=== PATIENT | female | born 1955 | race African-American/Black ===

== ENCOUNTER 2019-05-09 06:37 | Inpatient (IN) | payer BC ==
[~2019-05-09] VITALS: Ht 157.5 cm; Wt 85.0 kg
[~2019-05-09 06:37] MED LIST: LOSA-73 PO; SIMV20TA18 PO
--- NOTE | 2019-05-09 06:57 | PHYS DOC ---
Past Medical History Past Medical History: Diabetes-Type II, Heart Disease, Hypertension Alcohol Use: Rarely Drug Use: None Adult General Chief Complaint Chief Complaint: Palpitations HPI HPI Patient is a 63-year-old female who presents with report of palpitations that started this morning. She states that symptoms woke her up from sleep. Patient states that it feels like her heart is just racing. She denies any actual chest pain associated with it. She does admit to feeling very shaky all over. She does admit to some shortness of breath as well. She states the shortness breath is worsened with exertion. Patient denies any history of symptoms that are similar to this.[] Review of Systems Review of Systems Constitutional: Denies fever or chills [] Respiratory: Positive shortness of breath [] Cardiovascular: No additional information not addressed in HPI [] GI: Denies abdominal pain, nausea, vomiting or diarrhea [] Integument: Denies rash or skin lesions [] Neurologic: Denies headache, focal weakness or sensory changes [] All other systems were reviewed and found to be within normal limits, except as documented in this note. Current Medications Current Medications Current Medications Medications (Trade) Dose Ordered Sig/Surendra Start Time Stop Time Status Last Admin Dose Admin Diltiazem HCl (Cardizem Iv Push) 20 mg 1X ONCE 05/09/19 07:15 05/09/19 07:16 DC 05/09/19 06:59 20 MG Diltiazem HCl 125 mg/Dextrose 125 ml @ 5 mls/hr CONT PRN 05/09/19 07:15 05/09/19 07:21 5 MLS/HR Sodium Chloride 1,000 ml @ 125 mls/hr 1X ONCE 05/09/19 08:30 05/09/19 16:29 Allergies Allergies Allergies Coded Allergies Type Severity Reaction Last Updated Verified Sulfa (Sulfonamide Antibiotics) Allergy Intermediate Hives 12/09/14 Yes Physical Exam Physical Exam Constitutional: Well developed, well nourished, no acute distress, non-toxic appearance. [] HENT: Normocephalic, atraumatic, bilateral external ears normal, oropharynx moist, no oral exudates, nose normal. [] Eyes: PERRLA, EOMI, conjunctiva normal, no discharge. [] Neck: Normal range of motion, no tenderness, supple, no stridor. [] Cardiovascular: Tachycardic rate with irregular rhythm[] Lungs & Thorax: Bilateral breath sounds clear to auscultation [] Abdomen: Bowel sounds normal, soft, no tenderness. [] Skin: Warm, dry, no erythema, no rash. [] Extremities: No tenderness, no cyanosis, no clubbing, ROM intact, with nonpitting edema. [] Neurologic: Alert and oriented X 3, no focal deficits noted. [] Current Patient Data Vital Signs Vital Signs Date Time Temp Pulse Resp B/P (MAP) Pulse Ox O2 Delivery O2 Flow Rate FiO2 05/09/19 08:00 88 18 143/93 (110) 98 Room Air 05/09/19 06:41 98.1 98.1 Lab Values Laboratory Tests Test 05/09/19 06:45 05/09/19 07:20 White Blood Count 5.5 x10^3/uL (4.0-11.0) Red Blood Count 6.45 x10^6/uL (3.50-5.40) H Hemoglobin 15.4 g/dL (12.0-15.5) Hematocrit 47.7 % (36.0-47.0) H Mean Corpuscular Volume 74 fL (79-100) L Mean Corpuscular Hemoglobin 24 pg (25-35) L Mean Corpuscular Hemoglobin Concent 32 g/dL (31-37) Red Cell Distribution Width 14.4 % (11.5-14.5) Platelet Count 282 x10^3/uL (140-400) Neutrophils (%) (Auto) 29 % (31-73) L Lymphocytes (%) (Auto) 58 % (24-48) H Monocytes (%) (Auto) 9 % (0-9) Eosinophils (%) (Auto) 3 % (0-3) Basophils (%) (Auto) 1 % (0-3) Neutrophils # (Auto) 1.6 x10^3/uL (1.8-7.7) L Lymphocytes # (Auto) 3.2 x10^3/uL (1.0-4.8) Monocytes # (Auto) 0.5 x10^3/uL (0.0-1.1) Eosinophils # (Auto) 0.1 x10^3/uL (0.0-0.7) Basophils # (Auto) 0.1 x10^3/uL (0.0-0.2) Sodium Level 144 mmol/L (136-145) Potassium Level 4.4 mmol/L (3.5-5.1) Chloride Level 109 mmol/L (98-107) H Carbon Dioxide Level 26 mmol/L (21-32) Anion Gap 9 (6-14) Blood Urea Nitrogen 10 mg/dL (7-20) Creatinine 0.9 mg/dL (0.6-1.0) Estimated GFR (Cockcroft-Gault) 76.5 BUN/Creatinine Ratio 11 (6-20) Glucose Level 162 mg/dL (70-99) H Calcium Level 9.3 mg/dL (8.5-10.1) Magnesium Level 1.9 mg/dL (1.8-2.4) Total Bilirubin 0.3 mg/dL (0.2-1.0) Aspartate Amino Transferase (AST) 19 U/L (15-37) Alanine Aminotransferase (ALT) 15 U/L (14-59) Alkaline Phosphatase 94 U/L (46-116) Troponin I Quantitative < 0.017 ng/mL (0.000-0.055) WM-Ckn-E-Type Natriuretic Peptide 23 pg/mL (0-124) Total Protein 7.6 g/dL (6.4-8.2) Albumin 3.6 g/dL (3.4-5.0) Albumin/Globulin Ratio 0.9 (1.0-1.7) L Laboratory Tests 05/09/19 06:45 Laboratory Tests 05/09/19 07:20 EKG EKG [] Interpretation Time: EKG demonstrates atrial fibrillation with rapid ventricular response with rate of 140. Radiology/Procedures Radiology/Procedures [] Course & Med Decision Making Course & Med Decision Making Pertinent Labs and Imaging studies reviewed. (See chart for details) [] Dragon Disclaimer Dragon Disclaimer This electronic medical record was generated, in whole or in part, using a voice recognition dictation system. Departure Departure Impression: Primary Impression: Atrial fibrillation with RVR Disposition: ADMITTED INPATIENT Admitting Physician: Angi Hudson Condition: IMPROVED Referrals: ANGI HUDSON MD (PCP) HUGO HAWKINS Jr. DO May 09, 2019 06:57
[2019-05-09 06:59] LABS: BASO # 0.1 x10^3/uL (0.0-0.2); BASO % 1 % (0-3); EOS # 0.1 x10^3/uL (0.0-0.7); EOS % 3 % (0-3); HEMATOCRIT 47.7 % (36.0-47.0); HEMOGLOBIN 15.4 g/dL (12.0-15.5); LYMPH # 3.2 x10^3/uL (1.0-4.8); LYMPH % 58 % (24-48); MEAN CORPUSCULAR HEMOGLOBIN 24 pg (25-35); MEAN CORPUSCULAR HGB CONC 32 g/dL (31-37); MEAN CORPUSCULAR VOLUME 74 fL (79-100); MONO # 0.5 x10^3/uL (0.0-1.1); MONO % 9 % (0-9); NEUT # 1.6 x10^3/uL (1.8-7.7); NEUT % 29 % (31-73); PLATELET COUNT 282 x10^3/uL (140-400); RED BLOOD COUNT 6.45 x10^6/uL (3.50-5.40); RED CELL DISTRIBUTION WIDTH 14.4 % (11.5-14.5); WHITE BLOOD COUNT 5.5 x10^3/uL (4.0-11.0)
[2019-05-09] MEDS ORDERED: dilTIAZem IV PUSH 25 MG/5 ML VIAL IVP ONE (07:15)
[2019-05-09] MEDS: dilTIAZem INJ 125 MG in IV DEXTROSE 5% 100ML 100 ML IV PRN ×2 (07:21→20:46)
[2019-05-09 07:42] LABS: CALCIUM 9.3 mg/dL (8.5-10.1); CREATININE 0.9 mg/dL (0.6-1.0); GFR 76.5; POTASSIUM 4.4 mmol/L (3.5-5.1)
--- NOTE | 2019-05-09 07:47 | RAD ---
EXAM: Chest, single view. HISTORY: Palpitations. COMPARISON: None. FINDINGS: A frontal view of the chest is obtained. There is no infiltrate, pleural effusion or pneumothorax. The heart is normal in size. There is slight eventration of the right hemidiaphragm. There is a calcified granuloma within the left mid thorax. IMPRESSION: No acute pulmonary finding. Electronically signed by: Steffanie Max MD (05/09/2019 7:43 AM) [facility]
[2019-05-09 07:48] LABS: ALBUMIN 3.6 g/dL (3.4-5.0); ALBUMIN/GLOBULIN RATIO 0.9 (1.0-1.7); MAGNESIUM 1.9 mg/dL (1.8-2.4); TOTAL BILIRUBIN 0.3 mg/dL (0.2-1.0); TOTAL PROTEIN 7.6 g/dL (6.4-8.2)
[2019-05-09] MEDS ORDERED: IV NORMAL SALINE 1000ML BAG 1,000 ML IV ONE (08:30)
--- NOTE | 2019-05-09 10:09 | EKG ---
[facility] [address] [place] [address] Test Date: 2019-05-09 Test Time: 06:44:39 Pat Name: NAY MENSAH Department: Room: 256 1 Gender: F Loan Documents Closer: : 1955 Requested By: HUGO HAWKINS Order Number: [id number] Reading MD: Norman Scales MD Measurements Intervals [place] Rate: 140 P: GA: QRS: -3 QRSD: 72 T: 15 QT: 306 QTc: 471 Interpretive Statements ATRIAL FIBRILLATION WITH RVR NON-SPECIFIC ST/T CHANGES Electronically Signed On 05-19-2019 10:23:48 CDT by Norman Scales MD
[2019-05-09 10:34] VITALS: BP 192/94
--- NOTE | 2019-05-09 10:50 | NUR ---
The patient, NAY MENSAH, 63 y/o, F admitted by GALLO POLLARD MD, was given written information regarding hospital policies, unit procedures and contact persons. Valuables were checked and left in room with patient. Patient has no complaints of pain but does get SOB with exertion. Patient arrived to unit with Cardizem gtt infusing at 5mg/hr. Patients heart rate in 140's. Educated patient on atrial fibrillation s/sx, risk and treatment. Patient verbalized understanding.
[2019-05-09] MEDS ORDERED: LOSA100T14 PO (11:29)
[2019-05-09] MEDS ORDERED: CALC-450 PO (11:29)
[2019-05-09] MEDS ORDERED: ASPI81TA50 PO (11:29)
--- NOTE | 2019-05-09 12:04 | PDOC ---
PROGRESS NOTES Subjective Subjective Patient reports palpitations have resolved. Denies chest pain at present. Objective Objective Vital Signs Date Time Temp Pulse Resp B/P (MAP) Pulse Ox O2 Delivery O2 Flow Rate FiO2 05/09/19 09:30 88 18 141/84 (103) 99 Room Air 05/09/19 06:41 98.1 98.1 Physical Exam Abdomen: Normal bowel sounds, Soft, No tenderness Heart: Other (irregularly irregular) Extremities: No edema General: Alert, Oriented X3, No acute distress Lungs: Clear to auscultation Assessment Assessment Problems Medical Problems: (1) Atrial fibrillation with RVR Status: Acute Plan Plan of Care 1. Afib with RVR - patient with no history of this. HR improved with Cardizem gtt, continue tx per Cardiology. Troponin negative. 2. HTN - BP elevated as patient has not taken her Losartan today yet, resume daily. 3. glucose intolerance - diet-controlled. ADA diet ordered. Comment Review of Relevant I have reviewed the following items sujatha (where applicable) has been applied. Labs Laboratory Tests Test 05/09/19 06:45 05/09/19 07:20 White Blood Count 5.5 x10^3/uL (4.0-11.0) Red Blood Count 6.45 x10^6/uL (3.50-5.40) Hemoglobin 15.4 g/dL (12.0-15.5) Hematocrit 47.7 % (36.0-47.0) Mean Corpuscular Volume 74 fL (79-100) Mean Corpuscular Hemoglobin 24 pg (25-35) Mean Corpuscular Hemoglobin Concent 32 g/dL (31-37) Red Cell Distribution Width 14.4 % (11.5-14.5) Platelet Count 282 x10^3/uL (140-400) Neutrophils (%) (Auto) 29 % (31-73) Lymphocytes (%) (Auto) 58 % (24-48) Monocytes (%) (Auto) 9 % (0-9) Eosinophils (%) (Auto) 3 % (0-3) Basophils (%) (Auto) 1 % (0-3) Neutrophils # (Auto) 1.6 x10^3/uL (1.8-7.7) Lymphocytes # (Auto) 3.2 x10^3/uL (1.0-4.8) Monocytes # (Auto) 0.5 x10^3/uL (0.0-1.1) Eosinophils # (Auto) 0.1 x10^3/uL (0.0-0.7) Basophils # (Auto) 0.1 x10^3/uL (0.0-0.2) Sodium Level 144 mmol/L (136-145) Potassium Level 4.4 mmol/L (3.5-5.1) Chloride Level 109 mmol/L (98-107) Carbon Dioxide Level 26 mmol/L (21-32) Anion Gap 9 (6-14) Blood Urea Nitrogen 10 mg/dL (7-20) Creatinine 0.9 mg/dL (0.6-1.0) Estimated GFR (Cockcroft-Gault) 76.5 BUN/Creatinine Ratio 11 (6-20) Glucose Level 162 mg/dL (70-99) Calcium Level 9.3 mg/dL (8.5-10.1) Magnesium Level 1.9 mg/dL (1.8-2.4) Total Bilirubin 0.3 mg/dL (0.2-1.0) Aspartate Amino Transf (AST/SGOT) 19 U/L (15-37) Alanine Aminotransferase (ALT/SGPT) 15 U/L (14-59) Alkaline Phosphatase 94 U/L (46-116) Troponin I Quantitative < 0.017 ng/mL (0.000-0.055) YP-Gvg-W-Type Natriuretic Peptide 23 pg/mL (0-124) Total Protein 7.6 g/dL (6.4-8.2) Albumin 3.6 g/dL (3.4-5.0) Albumin/Globulin Ratio 0.9 (1.0-1.7) Laboratory Tests Test 05/09/19 06:45 05/09/19 07:20 White Blood Count 5.5 x10^3/uL (4.0-11.0) Red Blood Count 6.45 x10^6/uL (3.50-5.40) Hemoglobin 15.4 g/dL (12.0-15.5) Hematocrit 47.7 % (36.0-47.0) Mean Corpuscular Volume 74 fL (79-100) Mean Corpuscular Hemoglobin 24 pg (25-35) Mean Corpuscular Hemoglobin Concent 32 g/dL (31-37) Red Cell Distribution Width 14.4 % (11.5-14.5) Platelet Count 282 x10^3/uL (140-400) Neutrophils (%) (Auto) 29 % (31-73) Lymphocytes (%) (Auto) 58 % (24-48) Monocytes (%) (Auto) 9 % (0-9) Eosinophils (%) (Auto) 3 % (0-3) Basophils (%) (Auto) 1 % (0-3) Neutrophils # (Auto) 1.6 x10^3/uL (1.8-7.7) Lymphocytes # (Auto) 3.2 x10^3/uL (1.0-4.8) Monocytes # (Auto) 0.5 x10^3/uL (0.0-1.1) Eosinophils # (Auto) 0.1 x10^3/uL (0.0-0.7) Basophils # (Auto) 0.1 x10^3/uL (0.0-0.2) Sodium Level 144 mmol/L (136-145) Potassium Level 4.4 mmol/L (3.5-5.1) Chloride Level 109 mmol/L (98-107) Carbon Dioxide Level 26 mmol/L (21-32) Anion Gap 9 (6-14) Blood Urea Nitrogen 10 mg/dL (7-20) Creatinine 0.9 mg/dL (0.6-1.0) Estimated GFR (Cockcroft-Gault) 76.5 BUN/Creatinine Ratio 11 (6-20) Glucose Level 162 mg/dL (70-99) Calcium Level 9.3 mg/dL (8.5-10.1) Magnesium Level 1.9 mg/dL (1.8-2.4) Total Bilirubin 0.3 mg/dL (0.2-1.0) Aspartate Amino Transf (AST/SGOT) 19 U/L (15-37) Alanine Aminotransferase (ALT/SGPT) 15 U/L (14-59) Alkaline Phosphatase 94 U/L (46-116) Troponin I Quantitative < 0.017 ng/mL (0.000-0.055) HA-Ufc-J-Type Natriuretic Peptide 23 pg/mL (0-124) Total Protein 7.6 g/dL (6.4-8.2) Albumin 3.6 g/dL (3.4-5.0) Albumin/Globulin Ratio 0.9 (1.0-1.7) Medications Current Medications Diltiazem HCl (Cardizem Iv Push) 20 mg 1X ONCE IVP Last administered on 05/09/19at 06:59; Start 05/09/19 at 07:15; Stop 05/09/19 at 07:16; Status DC Diltiazem HCl 125 mg/Dextrose 125 ml @ 5 mls/hr CONT PRN IV SEE I/O RECORD Last administered on 05/09/19at 07:21; Start 05/09/19 at 07:15 Sodium Chloride 1,000 ml @ 125 mls/hr 1X ONCE IV ; Start 05/09/19 at 08:30; Stop 05/09/19 at 16:29 Losartan Potassium (Cozaar) 100 mg DAILY PO ; Start 05/09/19 at 12:00 Active Scripts Active Reported Caltrate 600 + D Soft Chew Tab (Calcium Carbonate/Vitamin D3) 1 Each Tab.chew 1 Each PO DAILY Aspir-Low (Aspirin) 81 Mg Tablet.dr 81 Mg PO QMONFR Losartan Potassium 100 Mg Tablet 100 Mg PO DAILY Vitals/I & O Vital Sign - Last 24 Hours 05/09/19 05/09/19 05/09/19 05/09/19 06:41 06:55 06:59 07:15 Temp 98.1 98.1 Pulse 140 129 148 86 Resp 10 29 18 B/P (MAP) 242/139 (173) 203/130 (154) 203/130 163/97 (119) Pulse Ox 98 97 O2 Delivery Room Air Room Air Room Air 05/09/19 05/09/19 05/09/19 07:45 08:00 09:30 Pulse 90 88 88 Resp 18 18 18 B/P (MAP) 141/100 (114) 143/93 (110) 141/84 (103) Pulse Ox 96 98 99 O2 Delivery Room Air Room Air Room Air GALLO POLLARD MD May 09, 2019 12:04
[2019-05-09] MEDS ORDERED: ACETAMINOPHEN 500 MG TABLET PO PRN (12:15)
--- NOTE | 2019-05-09 12:48 | HP ---
ADMIT DATE: 05/09/2019 CHIEF COMPLAINT: Palpitations. HISTORY OF PRESENT ILLNESS: The patient is a 63-year-old female with no known history of cardiac arrhythmias, who presented to the Emergency Room with the above complaint. She reported waking up in the middle of the night and feeling palpitations. She felt that her heart was racing. She had some mild chest discomfort associated with this. When the symptoms persisted, she came to the Emergency Room. Initial evaluation there showed her to be in atrial fibrillation with rapid ventricular response. Treatment was started and she was admitted for further care. PAST MEDICAL HISTORY: Hypertension, glucose intolerance, osteopenia. PAST SURGICAL HISTORY: Left breast cyst removal, bilateral tubal ligation. ALLERGIES: THE PATIENT IS ALLERGIC TO SULFA. HOME MEDICATIONS: Losartan 100 mg daily, calcium with vitamin D daily. FAMILY HISTORY: Noncontributory. SOCIAL HISTORY: The patient is . She used to smoke cigarettes, but has not smoked in many years. She does not drink alcohol to excess. REVIEW OF SYSTEMS: The patient states she has been feeling well. She denies fever or chills. She denies cough or chest congestion. She denies other episodes of palpitations or chest pain. She drinks 1 cup of decaffeinated coffee daily. She denies abdominal pain, nausea, or vomiting. She denies lower extremity edema. She has been taking her blood pressure medicine daily, but did not take it today as she was in the Emergency Room. She has been watching her diet for sugar as advised. PHYSICAL EXAMINATION: GENERAL: The patient is alert and oriented x 3, resting comfortably in bed in no acute distress. HEENT: PERRL, EOMI, sclerae clear. Oropharynx: Mucous membranes moist. NECK: Supple, without lymphadenopathy. CHEST: Clear to auscultation. CARDIOVASCULAR: Irregularly irregular, no murmur. ABDOMEN: Soft, nontender, normoactive bowel sounds are present. EXTREMITIES: Bilateral lower extremities are without edema. ASSESSMENT AND PLAN: 1. Atrial fibrillation with rapid ventricular response. The patient's heart rate has improved with a Cardizem drip. First Troponin is negative. Cardiology has been consulted to help with further treatment. 2. Hypertension. The patient's blood pressure is elevated as she has not taken her losartan today. We will resume this daily. 3. Glucose intolerance. This has been diet controlled for her with her last A1c of 6.0. ADA diet is ordered. GALLO POLLARD MD DR: ALEX/ellyn JOB#: [id number] / [id number] HARPAL
[2019-05-09] MEDS: LOSARTAN POTASSIUM 50 MG TABLET. PO SCH (12:53)
[2019-05-09 15:00] VITALS: BP 128/68
[2019-05-09 19:35] VITALS: BP 126/73
[2019-05-09 23:00] VITALS: BP 106/53
[2019-05-10 03:28] VITALS: BP 122/74
[2019-05-10 05:00] LABS: BASO % 1 % (0-3); EOS # 0.1 x10^3/uL (0.0-0.7); EOS % 2 % (0-3); HEMATOCRIT 40.9 % (36.0-47.0); LYMPH # 2.2 x10^3/uL (1.0-4.8); LYMPH % 47 % (24-48); MEAN CORPUSCULAR HEMOGLOBIN 24 pg (25-35); MEAN CORPUSCULAR HGB CONC 32 g/dL (31-37); MEAN CORPUSCULAR VOLUME 74 fL (79-100); MONO # 0.6 x10^3/uL (0.0-1.1); MONO % 12 % (0-9); NEUT # 1.8 x10^3/uL (1.8-7.7); NEUT % 38 % (31-73); PLATELET COUNT 259 x10^3/uL (140-400); RED BLOOD COUNT 5.53 x10^6/uL (3.50-5.40); RED CELL DISTRIBUTION WIDTH 14.3 % (11.5-14.5); WHITE BLOOD COUNT 4.6 x10^3/uL (4.0-11.0)
[2019-05-10 05:14] LABS: CALCIUM 8.9 mg/dL (8.5-10.1); CREATININE 0.9 mg/dL (0.6-1.0); GFR 76.5; POTASSIUM 4.2 mmol/L (3.5-5.1)
[2019-05-10 07:00] VITALS: BP 124/80
[2019-05-10] MEDS: LOSARTAN POTASSIUM 50 MG TABLET. PO SCH (08:47)
[2019-05-10] MEDS ORDERED: ANTI-COAG MONITOR BY PHARMACY. MC PRN (10:30)
[2019-05-10 11:00] VITALS: BP 158/84
[2019-05-10] MEDS: APIXABAN 5 MG TABLET. PO SCH ×2 (11:04→21:03)
--- NOTE | 2019-05-10 11:10 | PDOC ---
PROGRESS NOTES Subjective Subjective Patient without complaint, feels fine. Objective Objective Vital Signs Date Time Temp Pulse Resp B/P (MAP) Pulse Ox O2 Delivery O2 Flow Rate FiO2 05/10/19 08:47 78 05/10/19 07:00 97.5 18 124/80 (95) 99 Room Air 97.5 Intake and Output 05/10/19 06:59 Intake Total 550 ml Output Total 1200 ml Balance -650 ml Intake Oral 430 ml IV Total 120 ml Output Urine Total 1200 ml Physical Exam Abdomen: Normal bowel sounds, Soft, No tenderness Heart: Regular rate Extremities: No edema General: Alert, Oriented X3, No acute distress Lungs: Clear to auscultation Assessment Assessment Problems Medical Problems: (1) Atrial fibrillation with RVR Status: Acute Plan Plan of Care 1. Afib with RVR - patient spontaneously converted to sinus last night on Cardizem gtt. Weaning gtt and starting po tx per Cardiology. Continue to follow. 2. HTN - BP labile, adjusting medication. 3. glucose intolerance - diet controlled, continue ADA diet. Comment Review of Relevant I have reviewed the following items sujatha (where applicable) has been applied. Labs Laboratory Tests Test 05/09/19 06:45 05/09/19 07:20 05/09/19 12:42 05/09/19 15:35 White Blood Count 5.5 x10^3/uL (4.0-11.0) Red Blood Count 6.45 x10^6/uL (3.50-5.40) Hemoglobin 15.4 g/dL (12.0-15.5) Hematocrit 47.7 % (36.0-47.0) Mean Corpuscular Volume 74 fL (79-100) Mean Corpuscular Hemoglobin 24 pg (25-35) Mean Corpuscular Hemoglobin Concent 32 g/dL (31-37) Red Cell Distribution Width 14.4 % (11.5-14.5) Platelet Count 282 x10^3/uL (140-400) Neutrophils (%) (Auto) 29 % (31-73) Lymphocytes (%) (Auto) 58 % (24-48) Monocytes (%) (Auto) 9 % (0-9) Eosinophils (%) (Auto) 3 % (0-3) Basophils (%) (Auto) 1 % (0-3) Neutrophils # (Auto) 1.6 x10^3/uL (1.8-7.7) Lymphocytes # (Auto) 3.2 x10^3/uL (1.0-4.8) Monocytes # (Auto) 0.5 x10^3/uL (0.0-1.1) Eosinophils # (Auto) 0.1 x10^3/uL (0.0-0.7) Basophils # (Auto) 0.1 x10^3/uL (0.0-0.2) Sodium Level 144 mmol/L (136-145) Potassium Level 4.4 mmol/L (3.5-5.1) Chloride Level 109 mmol/L (98-107) Carbon Dioxide Level 26 mmol/L (21-32) Anion Gap 9 (6-14) Blood Urea Nitrogen 10 mg/dL (7-20) Creatinine 0.9 mg/dL (0.6-1.0) Estimated GFR (Cockcroft-Gault) 76.5 BUN/Creatinine Ratio 11 (6-20) Glucose Level 162 mg/dL (70-99) Calcium Level 9.3 mg/dL (8.5-10.1) Magnesium Level 1.9 mg/dL (1.8-2.4) Total Bilirubin 0.3 mg/dL (0.2-1.0) Aspartate Amino Transf (AST/SGOT) 19 U/L (15-37) Alanine Aminotransferase (ALT/SGPT) 15 U/L (14-59) Alkaline Phosphatase 94 U/L (46-116) Troponin I Quantitative < 0.017 ng/mL (0.000-0.055) < 0.017 ng/mL (0.000-0.055) < 0.017 ng/mL (0.000-0.055) DI-Lie-A-Type Natriuretic Peptide 23 pg/mL (0-124) Total Protein 7.6 g/dL (6.4-8.2) Albumin 3.6 g/dL (3.4-5.0) Albumin/Globulin Ratio 0.9 (1.0-1.7) Thyroid Stimulating Hormone (TSH) 1.712 uIU/mL (0.358-3.74) Test 05/10/19 04:00 White Blood Count 4.6 x10^3/uL (4.0-11.0) Red Blood Count 5.53 x10^6/uL (3.50-5.40) Hemoglobin 13.0 g/dL (12.0-15.5) Hematocrit 40.9 % (36.0-47.0) Mean Corpuscular Volume 74 fL (79-100) Mean Corpuscular Hemoglobin 24 pg (25-35) Mean Corpuscular Hemoglobin Concent 32 g/dL (31-37) Red Cell Distribution Width 14.3 % (11.5-14.5) Platelet Count 259 x10^3/uL (140-400) Neutrophils (%) (Auto) 38 % (31-73) Lymphocytes (%) (Auto) 47 % (24-48) Monocytes (%) (Auto) 12 % (0-9) Eosinophils (%) (Auto) 2 % (0-3) Basophils (%) (Auto) 1 % (0-3) Neutrophils # (Auto) 1.8 x10^3/uL (1.8-7.7) Lymphocytes # (Auto) 2.2 x10^3/uL (1.0-4.8) Monocytes # (Auto) 0.6 x10^3/uL (0.0-1.1) Eosinophils # (Auto) 0.1 x10^3/uL (0.0-0.7) Basophils # (Auto) 0.0 x10^3/uL (0.0-0.2) Sodium Level 144 mmol/L (136-145) Potassium Level 4.2 mmol/L (3.5-5.1) Chloride Level 109 mmol/L (98-107) Carbon Dioxide Level 29 mmol/L (21-32) Anion Gap 6 (6-14) Blood Urea Nitrogen 10 mg/dL (7-20) Creatinine 0.9 mg/dL (0.6-1.0) Estimated GFR (Cockcroft-Gault) 76.5 Glucose Level 124 mg/dL (70-99) Calcium Level 8.9 mg/dL (8.5-10.1) Laboratory Tests Test 05/09/19 12:42 05/09/19 15:35 05/10/19 04:00 Troponin I Quantitative < 0.017 ng/mL (0.000-0.055) < 0.017 ng/mL (0.000-0.055) Thyroid Stimulating Hormone (TSH) 1.712 uIU/mL (0.358-3.74) White Blood Count 4.6 x10^3/uL (4.0-11.0) Red Blood Count 5.53 x10^6/uL (3.50-5.40) Hemoglobin 13.0 g/dL (12.0-15.5) Hematocrit 40.9 % (36.0-47.0) Mean Corpuscular Volume 74 fL (79-100) Mean Corpuscular Hemoglobin 24 pg (25-35) Mean Corpuscular Hemoglobin Concent 32 g/dL (31-37) Red Cell Distribution Width 14.3 % (11.5-14.5) Platelet Count 259 x10^3/uL (140-400) Neutrophils (%) (Auto) 38 % (31-73) Lymphocytes (%) (Auto) 47 % (24-48) Monocytes (%) (Auto) 12 % (0-9) Eosinophils (%) (Auto) 2 % (0-3) Basophils (%) (Auto) 1 % (0-3) Neutrophils # (Auto) 1.8 x10^3/uL (1.8-7.7) Lymphocytes # (Auto) 2.2 x10^3/uL (1.0-4.8) Monocytes # (Auto) 0.6 x10^3/uL (0.0-1.1) Eosinophils # (Auto) 0.1 x10^3/uL (0.0-0.7) Basophils # (Auto) 0.0 x10^3/uL (0.0-0.2) Sodium Level 144 mmol/L (136-145) Potassium Level 4.2 mmol/L (3.5-5.1) Chloride Level 109 mmol/L (98-107) Carbon Dioxide Level 29 mmol/L (21-32) Anion Gap 6 (6-14) Blood Urea Nitrogen 10 mg/dL (7-20) Creatinine 0.9 mg/dL (0.6-1.0) Estimated GFR (Cockcroft-Gault) 76.5 Glucose Level 124 mg/dL (70-99) Calcium Level 8.9 mg/dL (8.5-10.1) Medications Current Medications Diltiazem HCl (Cardizem Iv Push) 20 mg 1X ONCE IVP Last administered on 05/09/19at 06:59; Start 05/09/19 at 07:15; Stop 05/09/19 at 07:16; Status DC Diltiazem HCl 125 mg/Dextrose 125 ml @ 5 mls/hr CONT PRN IV SEE I/O RECORD Last administered on 05/09/19at 20:46; Start 05/09/19 at 07:15; Stop 05/10/19 at 10:25; Status DC Sodium Chloride 1,000 ml @ 125 mls/hr 1X ONCE IV Last administered on 05/09/19at 12:59; Start 05/09/19 at 08:30; Stop 05/09/19 at 16:29; Status DC Losartan Potassium (Cozaar) 100 mg DAILY PO Last administered on 05/10/19at 08:47; Start 05/09/19 at 12:00; Stop 05/10/19 at 10:25; Status DC Acetaminophen (Tylenol) 1,000 mg PRN Q6HRS PRN PO pain; Start 05/09/19 at 12:15 Losartan Potassium (Cozaar) 50 mg DAILY PO ; Start 05/11/19 at 09:00 Apixaban (Eliquis) 5 mg BID PO ; Start 05/10/19 at 11:00 Diltiazem HCl (Cardizem 24hr ) 180 mg DAILY PO ; Start 05/10/19 at 11:00 Info (Anti-Coagulation Monitoring By Pharmacy) 1 each PRN DAILY PRN [facility] SEE COMMENTS; Start 05/10/19 at 10:30 Active Scripts Active Reported Caltrate 600 + D Soft Chew Tab (Calcium Carbonate/Vitamin D3) 1 Each Tab.chew 1 Each PO DAILY Aspir-Low (Aspirin) 81 Mg Tablet.dr 81 Mg PO QMONFR Losartan Potassium 100 Mg Tablet 100 Mg PO DAILY Vitals/I & O Vital Sign - Last 24 Hours 05/09/19 05/09/19 05/09/19 05/09/19 11:30 12:53 15:00 19:35 Temp 98.0 98.1 98.0 98.1 Pulse 66 96 Resp 16 21 B/P (MAP) 148/85 128/68 (88) 126/73 (90) Pulse Ox 99 98 O2 Delivery Room Air Room Air Room Air 05/09/19 05/09/19 05/10/1919 20:15 23:00 03:28 07:00 Temp 98.1 97.5 98.1 97.5 Pulse 71 71 18 Resp 21 18 B/P (MAP) 106/53 (70) 122/74 (90) 124/80 (95) Pulse Ox 97 95 99 O2 Delivery Room Air Room Air Room Air Room Air 05/10/19 08:47 Pulse 78 Intake and Output 05/09/19 05/09/19 05/10/19 14:59 22:59 06:59 Intake Total 300 ml 250 ml Output Total 350 ml 850 ml Balance -50 ml -600 ml GALLO POLLARD MD May 10, 2019 11:10
--- NOTE | 2019-05-10 14:34 | PDOC2 ---
CONSULT Date of Consult Date of Consult DATE: 05/10/19 TIME: 14:28 Reason for Consult Reason for Consult: Atrial fibrillation Referring Physician Referring Physician: Dr. Hudson Identification/Chief Complaint Chief Complaint Palpitations Source Source: Chart review, Patient History of Present Illness Reason for Visit: The patient is a 63-year-old female who was admitted through the emergency room last evening. Patient reports episodes of palpitations that brought to the emergency room. She also reports some previous episodes of palpitations at which was self-limited. In the emergency room the patient was found to be in atrial fibrillation. She was treated with IV Cardizem and has converted to sinus rhythm this morning. She is feeling well. Her history is significant for hypertension. She has no previous history of coronary disease, congestive heart failure or cardiac arrhythmias. Past Medical History Cardiovascular: HTN, Hyperlipidemia Pulmonary: Asthma GI: No pertinent hx Heme/Onc: No pertinent hx Hepatobiliary: No pertinent hx Psych: No pertinent hx Rheumatologic: No pertinent hx Infectious disease: No pertinent hx Renal/: No pertinent hx Endocrine: No pertinent hx Past Surgical History Past Surgical History: Breast Biopsy, Tubal Ligation Family History Family History: Cancer Social History Quit ALCOHOL: occassional Drugs: None Current Problem List Problem List Problems Medical Problems: (1) Atrial fibrillation with RVR Status: Acute Current Medications Current Medications Current Medications Diltiazem HCl (Cardizem Iv Push) 20 mg 1X ONCE IVP Last administered on 05/09/19at 06:59; Start 05/09/19 at 07:15; Stop 05/09/19 at 07:16; Status DC Diltiazem HCl 125 mg/Dextrose 125 ml @ 5 mls/hr CONT PRN IV SEE I/O RECORD Last administered on 05/09/19at 20:46; Start 05/09/19 at 07:15; Stop 05/10/19 at 10:25; Status DC Sodium Chloride 1,000 ml @ 125 mls/hr 1X ONCE IV Last administered on 05/09/19at 12:59; Start 05/09/19 at 08:30; Stop 05/09/19 at 16:29; Status DC Losartan Potassium (Cozaar) 100 mg DAILY PO Last administered on 05/10/19at 08:47; Start 05/09/19 at 12:00; Stop 05/10/19 at 10:25; Status DC Acetaminophen (Tylenol) 1,000 mg PRN Q6HRS PRN PO pain; Start 05/09/19 at 12:15 Losartan Potassium (Cozaar) 50 mg DAILY PO ; Start 05/11/19 at 09:00 Apixaban (Eliquis) 5 mg BID PO Last administered on 05/10/19at 11:04; Start 05/10/19 at 11:00 Diltiazem HCl (Cardizem 24hr Cd) 180 mg DAILY PO Last administered on 05/10/19at 11:04; Start 05/10/19 at 11:00 Info (Anti-Coagulation Monitoring By Pharmacy) 1 each PRN DAILY PRN [facility] SEE COMMENTS; Start 05/10/19 at 10:30 Active Scripts Active Reported Caltrate 600 + D Soft Chew Tab (Calcium Carbonate/Vitamin D3) 1 Each Tab.chew 1 Each PO DAILY Aspir-Low (Aspirin) 81 Mg Tablet.dr 81 Mg PO QMONFR Losartan Potassium 100 Mg Tablet 100 Mg PO DAILY Allergies Allergies: Coded Allergies: Sulfa (Sulfonamide Antibiotics) (Verified Allergy, Intermediate, Hives, 12/09/14) ROS Cardiovascular: yes Palpitations Physical Exam General: No acute distress HEENT: Atraumatic Lungs: Clear to auscultation Heart: Regular rate Abdomen: Normal bowel sounds Vitals VITALS Vital Signs Date Time Temp Pulse Resp B/P (MAP) Pulse Ox O2 Delivery O2 Flow Rate FiO2 05/10/19 11:04 74 05/10/19 11:00 97.6 16 158/84 (108) 97 Room Air 97.6 Labs Labs Laboratory Tests Test 05/09/19 06:45 05/09/19 07:20 05/09/19 12:42 05/09/19 15:35 White Blood Count 5.5 x10^3/uL (4.0-11.0) Red Blood Count 6.45 x10^6/uL (3.50-5.40) Hemoglobin 15.4 g/dL (12.0-15.5) Hematocrit 47.7 % (36.0-47.0) Mean Corpuscular Volume 74 fL (79-100) Mean Corpuscular Hemoglobin 24 pg (25-35) Mean Corpuscular Hemoglobin Concent 32 g/dL (31-37) Red Cell Distribution Width 14.4 % (11.5-14.5) Platelet Count 282 x10^3/uL (140-400) Neutrophils (%) (Auto) 29 % (31-73) Lymphocytes (%) (Auto) 58 % (24-48) Monocytes (%) (Auto) 9 % (0-9) Eosinophils (%) (Auto) 3 % (0-3) Basophils (%) (Auto) 1 % (0-3) Neutrophils # (Auto) 1.6 x10^3/uL (1.8-7.7) Lymphocytes # (Auto) 3.2 x10^3/uL (1.0-4.8) Monocytes # (Auto) 0.5 x10^3/uL (0.0-1.1) Eosinophils # (Auto) 0.1 x10^3/uL (0.0-0.7) Basophils # (Auto) 0.1 x10^3/uL (0.0-0.2) Sodium Level 144 mmol/L (136-145) Potassium Level 4.4 mmol/L (3.5-5.1) Chloride Level 109 mmol/L (98-107) Carbon Dioxide Level 26 mmol/L (21-32) Anion Gap 9 (6-14) Blood Urea Nitrogen 10 mg/dL (7-20) Creatinine 0.9 mg/dL (0.6-1.0) Estimated GFR (Cockcroft-Gault) 76.5 BUN/Creatinine Ratio 11 (6-20) Glucose Level 162 mg/dL (70-99) Calcium Level 9.3 mg/dL (8.5-10.1) Magnesium Level 1.9 mg/dL (1.8-2.4) Total Bilirubin 0.3 mg/dL (0.2-1.0) Aspartate Amino Transf (AST/SGOT) 19 U/L (15-37) Alanine Aminotransferase (ALT/SGPT) 15 U/L (14-59) Alkaline Phosphatase 94 U/L (46-116) Troponin I Quantitative < 0.017 ng/mL (0.000-0.055) < 0.017 ng/mL (0.000-0.055) < 0.017 ng/mL (0.000-0.055) MX-Igb-U-Type Natriuretic Peptide 23 pg/mL (0-124) Total Protein 7.6 g/dL (6.4-8.2) Albumin 3.6 g/dL (3.4-5.0) Albumin/Globulin Ratio 0.9 (1.0-1.7) Thyroid Stimulating Hormone (TSH) 1.712 uIU/mL (0.358-3.74) Test 05/10/19 04:00 White Blood Count 4.6 x10^3/uL (4.0-11.0) Red Blood Count 5.53 x10^6/uL (3.50-5.40) Hemoglobin 13.0 g/dL (12.0-15.5) Hematocrit 40.9 % (36.0-47.0) Mean Corpuscular Volume 74 fL (79-100) Mean Corpuscular Hemoglobin 24 pg (25-35) Mean Corpuscular Hemoglobin Concent 32 g/dL (31-37) Red Cell Distribution Width 14.3 % (11.5-14.5) Platelet Count 259 x10^3/uL (140-400) Neutrophils (%) (Auto) 38 % (31-73) Lymphocytes (%) (Auto) 47 % (24-48) Monocytes (%) (Auto) 12 % (0-9) Eosinophils (%) (Auto) 2 % (0-3) Basophils (%) (Auto) 1 % (0-3) Neutrophils # (Auto) 1.8 x10^3/uL (1.8-7.7) Lymphocytes # (Auto) 2.2 x10^3/uL (1.0-4.8) Monocytes # (Auto) 0.6 x10^3/uL (0.0-1.1) Eosinophils # (Auto) 0.1 x10^3/uL (0.0-0.7) Basophils # (Auto) 0.0 x10^3/uL (0.0-0.2) Sodium Level 144 mmol/L (136-145) Potassium Level 4.2 mmol/L (3.5-5.1) Chloride Level 109 mmol/L (98-107) Carbon Dioxide Level 29 mmol/L (21-32) Anion Gap 6 (6-14) Blood Urea Nitrogen 10 mg/dL (7-20) Creatinine 0.9 mg/dL (0.6-1.0) Estimated GFR (Cockcroft-Gault) 76.5 Glucose Level 124 mg/dL (70-99) Calcium Level 8.9 mg/dL (8.5-10.1) Laboratory Tests Test 05/09/19 15:35 05/10/19 04:00 Troponin I Quantitative < 0.017 ng/mL (0.000-0.055) White Blood Count 4.6 x10^3/uL (4.0-11.0) Red Blood Count 5.53 x10^6/uL (3.50-5.40) Hemoglobin 13.0 g/dL (12.0-15.5) Hematocrit 40.9 % (36.0-47.0) Mean Corpuscular Volume 74 fL (79-100) Mean Corpuscular Hemoglobin 24 pg (25-35) Mean Corpuscular Hemoglobin Concent 32 g/dL (31-37) Red Cell Distribution Width 14.3 % (11.5-14.5) Platelet Count 259 x10^3/uL (140-400) Neutrophils (%) (Auto) 38 % (31-73) Lymphocytes (%) (Auto) 47 % (24-48) Monocytes (%) (Auto) 12 % (0-9) Eosinophils (%) (Auto) 2 % (0-3) Basophils (%) (Auto) 1 % (0-3) Neutrophils # (Auto) 1.8 x10^3/uL (1.8-7.7) Lymphocytes # (Auto) 2.2 x10^3/uL (1.0-4.8) Monocytes # (Auto) 0.6 x10^3/uL (0.0-1.1) Eosinophils # (Auto) 0.1 x10^3/uL (0.0-0.7) Basophils # (Auto) 0.0 x10^3/uL (0.0-0.2) Sodium Level 144 mmol/L (136-145) Potassium Level 4.2 mmol/L (3.5-5.1) Chloride Level 109 mmol/L (98-107) Carbon Dioxide Level 29 mmol/L (21-32) Anion Gap 6 (6-14) Blood Urea Nitrogen 10 mg/dL (7-20) Creatinine 0.9 mg/dL (0.6-1.0) Estimated GFR (Cockcroft-Gault) 76.5 Glucose Level 124 mg/dL (70-99) Calcium Level 8.9 mg/dL (8.5-10.1) Assessment/Plan Assessment/Plan 1. New onset atrial fibrillation. Patient's converted to sinus rhythm overnight on IV Cardizem. We will change IV to po Cardizem at 180 mg a day. We may need to decrease her hypertensive medications for to maintain a acceptable blood pressure. Patient also reports episodes of previous fluttering although was more self-limited. At this time will start Eliquis in case these represent previous episodes of A. fib. We will check an echocardiogram. Check a TSH. Will monitor overnight and anticipate discharge tomorrow on an outpatient monitor. We'll then follow-up in the office in approximately 3 weeks. If she has no recurrence of atrial fibrillation will discontinue Eliquis at that time. 2. Hypertension. Controlled. We'll adjust medications based on the patient's response to Cardizem. Thank you for allowing us to participate in the care of your patient. JOSEF SALAZAR MD May 10, 2019 14:34
[2019-05-10 15:00] VITALS: BP 139/72
[2019-05-10 19:20] VITALS: BP 156/74
[2019-05-10 23:10] VITALS: BP 153/97
[2019-05-11 03:05] VITALS: BP 160/77
[2019-05-11 07:00] VITALS: BP 144/75
--- NOTE | 2019-05-11 08:43 | PDOC ---
PROGRESS NOTES Subjective Subjective Patient reports mild headache, otherwise feels fine and ready to go home. Objective Objective Vital Signs Date Time Temp Pulse Resp B/P (MAP) Pulse Ox O2 Delivery O2 Flow Rate FiO2 05/11/19 03:05 98.0 72 20 160/77 (104) 97 Room Air 98.0 Intake and Output 05/11/19 07:00 Intake Total 1080 ml Output Total 1250 ml Balance -170 ml Intake Oral 1080 ml Output Urine Total 1250 ml Physical Exam Abdomen: Normal bowel sounds, Soft, No tenderness Heart: Regular rate Extremities: No edema General: Alert, Oriented X3, No acute distress Lungs: Clear to auscultation Assessment Assessment Problems Medical Problems: (1) Atrial fibrillation with RVR Status: Acute Plan Plan of Care 1. Afib with RVR - maintaining sinus rhythm after spontaneous conversion on Cardizem gtt. Home today on po Cardizem and Eliquis, follow up with Cardiology for further evaluation. 2. HTN - continue her usual Losartan 100mg with the Cardizem. 3. glucose intolerance - diet controlled. Comment Review of Relevant I have reviewed the following items sujatha (where applicable) has been applied. Labs Laboratory Tests Test 05/09/19 12:42 05/09/19 15:35 05/10/19 04:00 Troponin I Quantitative < 0.017 ng/mL (0.000-0.055) < 0.017 ng/mL (0.000-0.055) Thyroid Stimulating Hormone (TSH) 1.712 uIU/mL (0.358-3.74) White Blood Count 4.6 x10^3/uL (4.0-11.0) Red Blood Count 5.53 x10^6/uL (3.50-5.40) Hemoglobin 13.0 g/dL (12.0-15.5) Hematocrit 40.9 % (36.0-47.0) Mean Corpuscular Volume 74 fL (79-100) Mean Corpuscular Hemoglobin 24 pg (25-35) Mean Corpuscular Hemoglobin Concent 32 g/dL (31-37) Red Cell Distribution Width 14.3 % (11.5-14.5) Platelet Count 259 x10^3/uL (140-400) Neutrophils (%) (Auto) 38 % (31-73) Lymphocytes (%) (Auto) 47 % (24-48) Monocytes (%) (Auto) 12 % (0-9) Eosinophils (%) (Auto) 2 % (0-3) Basophils (%) (Auto) 1 % (0-3) Neutrophils # (Auto) 1.8 x10^3/uL (1.8-7.7) Lymphocytes # (Auto) 2.2 x10^3/uL (1.0-4.8) Monocytes # (Auto) 0.6 x10^3/uL (0.0-1.1) Eosinophils # (Auto) 0.1 x10^3/uL (0.0-0.7) Basophils # (Auto) 0.0 x10^3/uL (0.0-0.2) Sodium Level 144 mmol/L (136-145) Potassium Level 4.2 mmol/L (3.5-5.1) Chloride Level 109 mmol/L (98-107) Carbon Dioxide Level 29 mmol/L (21-32) Anion Gap 6 (6-14) Blood Urea Nitrogen 10 mg/dL (7-20) Creatinine 0.9 mg/dL (0.6-1.0) Estimated GFR (Cockcroft-Gault) 76.5 Glucose Level 124 mg/dL (70-99) Calcium Level 8.9 mg/dL (8.5-10.1) Medications Current Medications Diltiazem HCl (Cardizem Iv Push) 20 mg 1X ONCE IVP Last administered on 05/09/19at 06:59; Start 05/09/19 at 07:15; Stop 05/09/19 at 07:16; Status DC Diltiazem HCl 125 mg/Dextrose 125 ml @ 5 mls/hr CONT PRN IV SEE I/O RECORD Last administered on 05/09/19at 20:46; Start 05/09/19 at 07:15; Stop 05/10/19 at 10:2 5; Status DC Sodium Chloride 1,000 ml @ 125 mls/hr 1X ONCE IV Last administered on 05/09/19at 12:59; Start 05/09/19 at 08:30; Stop 05/09/19 at 16:29; Status DC Losartan Potassium (Cozaar) 100 mg DAILY PO Last administered on 05/10/19at 08:47; Start 05/09/19 at 12:00; Stop 05/10/19 at 10:25; Status DC Acetaminophen (Tylenol) 1,000 mg PRN Q6HRS PRN PO pain; Start 05/09/19 at 12:15 Losartan Potassium (Cozaar) 50 mg DAILY PO ; Start 05/11/19 at 09:00 Apixaban (Eliquis) 5 mg BID PO Last administered on 05/10/19at 21:03; Start 05/10/19 at 11:00 Diltiazem HCl (Cardizem 24hr Cd) 180 mg DAILY PO Last administered on 05/10/19at 11:04; Start 05/10/19 at 11:00 Info (Anti-Coagulation Monitoring By Pharmacy) 1 each PRN DAILY PRN [facility] SEE COMMENTS; Start 05/10/19 at 10:30 Active Scripts Active Reported Caltrate 600 + D Soft Chew Tab (Calcium Carbonate/Vitamin D3) 1 Each Tab.chew 1 Each PO DAILY Aspir-Low (Aspirin) 81 Mg Tablet.dr 81 Mg PO QMONFR Losartan Potassium 100 Mg Tablet 100 Mg PO DAILY Vitals/I & O Vital Sign - Last 24 Hours 05/10/19 05/10/19 05/10/19 05/10/19 08:47 11:00 11:04 15:00 Temp 97.6 98.0 97.6 98.0 Pulse 78 71 74 67 Resp 16 16 B/P (MAP) 158/84 (108) 139/72 (94) Pulse Ox 97 98 O2 Delivery Room Air Room Air 05/10/19 05/10/19 05/10/19 05/11/19 19:20 20:00 23:10 03:05 Temp 98.0 97.8 98.0 98.0 97.8 98.0 Pulse 81 63 72 Resp 18 18 20 B/P (MAP) 156/74 (101) 153/97 (115) 160/77 (104) Pulse Ox 97 95 97 O2 Delivery Room Air Room Air Room Air Room Air Intake and Output 05/10/19 05/10/19 05/11/19 15:00 23:00 07:00 Intake Total 600 ml 180 ml 300 ml Output Total 600 ml 150 ml 500 ml Balance 0 ml 30 ml -200 ml GALLO POLLARD MD May 11, 2019 08:43
[2019-05-11] MEDS ORDERED: APIX5TAB PO (08:45)
[2019-05-11] MEDS ORDERED: DILT180C29 PO (08:45)
[2019-05-11] MEDS ORDERED: LOSARTAN POTASSIUM 50 MG TABLET. PO SCH ×2 (09:00)
[2019-05-11] MEDS: APIXABAN 5 MG TABLET. PO SCH (09:52)
[2019-05-11 11:00] VITALS: BP 161/86
--- NOTE | 2019-05-11 13:06 | NUR ---
SS following for discharge planning. SS reviewed pt chart. Pt is from home with spouse and is currently on room air. Discharge order on the chart.
--- NOTE | 2019-05-11 14:18 | PDOC ---
CARDIO Progress Notes Date and Time Date of Service 05/11/19 Time of Evaluation 1610 Subjective Subjective: No Chest Pain, No shortness of breath, No Palpitations Vitals Vitals Vital Signs Date Time Temp Pulse Resp B/P (MAP) Pulse Ox O2 Delivery O2 Flow Rate FiO2 05/11/19 11:00 97.6 88 16 161/86 (111) 97 Room Air 97.6 Weight Weight [ ] Input and Output Intake and Output Intake and Output 05/11/19 07:00 Intake Total 1080 ml Output Total 1250 ml Balance -170 ml Intake Oral 1080 ml Output Urine Total 1250 ml Physical Exam HEENT: Neck Supple W Full Motion Chest: Symmetric LUNGS: Clear to Auscultation Heart: S1S2, RRR Abdomen: Soft N/T Extremities: No Edema Neurology: alert, oriented, follow commands Assessment Assessment 1. AFIB, new onset. Converted to SR with Cardizem and has been maintaining. Ec ho showed preserved LV systolic function. TSH WNL. 2. Hypertension; elevated. Losartan 100mg resumed Recommendations Lipid panel Eliquis for stroke prevention Cardizem for rate control Outpatient event monitor and followup arranged Consider outpatient ischemic workup. Supportive care. MIGUEL ANGEL CUELLAR APRN May 11, 2019 14:18
[2019-05-11 15:05] LABS: CHOLESTEROL/HDL RATIO 4.5
--- NOTE | 2019-05-11 15:05 | NUR ---
Discharged patient to home with spouse. Discharge instructions given to patient and family and verbalized understanding. Escorted patient to [facility].
--- NOTE | 2019-05-12 08:28 | DS ---
DATE OF DISCHARGE: 05/11/2019 CHIEF COMPLAINT: Palpitations. HISTORY OF PRESENT ILLNESS: The patient is a 63-year-old female with no known history of cardiac arrhythmias, who presented to the Emergency Room with the above complaint. She reported waking up in the middle of the night and feeling palpitations. She felt that her heart was racing. She had some mild chest discomfort associated with this. When the symptoms persisted, she came to the Emergency Room. Initial evaluation there showed her to be in atrial fibrillation with rapid ventricular response. Treatment was started and she was admitted for further care. HOSPITAL COURSE: The patient was admitted to the Telemetry floor. She was seen in consultation by Cardiology. She was started on a Cardizem drip for rate control and the dose was adjusted as needed. Sometime during the evening of her first hospital day, she spontaneously converted to sinus rhythm and she remained in sinus rhythm for the rest of her hospital stay. She was transitioned to oral Cardizem for ongoing rate control and the Cardizem drip was discontinued. She was started on Eliquis for ongoing anticoagulation. The patient had an echocardiogram, which reportedly showed a preserved ejection fraction. Her TSH was within normal limits. She was continued on her usual losartan 100 mg daily as her blood pressure was elevated even with the Cardizem. She has glucose intolerance, which is diet controlled for her. She is to follow up with Cardiology as an outpatient for further cardiac testing. FINAL DIAGNOSES: 1. Atrial fibrillation with rapid ventricular response. 2. Hypertension. 3. Glucose intolerance. DISCHARGE MEDICATIONS: Losartan 100 mg daily, Eliquis 5 mg b.i.d., diltiazem CD 180 mg daily. FOLLOWUP: With Cardiology as scheduled. Follow up with Dr. Hudson as needed. GALLO HUDSON MD DR: ALEX/ellyn JOB#: [id number] / [id number] HARPAL
--- NOTE | 2019-05-12 09:20 | CARD ---
MR#: [id number] Date of Study: 05/11/2019 Ordering Physician: JOSEF SALAZAR, Referring Physician: JOSEF SALAZAR, Tech: Celine Galvan APPROVED REPORT EXAM: Two-dimensional and M-mode echocardiogram with Doppler and color Doppler. Other Information Quality : AverageHR: 77bpm Technically limited study due to body habitus. INDICATION Atrial Fibrillation RISK FACTORS Hypertension Diabetes 2D DIMENSIONS RVDd2.4 (2.9-3.5cm)Left Atrium(2D)3.2 (1.6-4.0cm) IVSd0.9 (0.7-1.1cm)Aortic Root(2D)2.3 (2.0-3.7cm) LVDd4.1 (3.9-5.9cm)LVOT Diameter2.0 (1.8-2.4cm) PWd0.8 (0.7-1.1cm)LVDs2.2 (2.5-4.0cm) FS (%) 47.2 %SV57.8 ml LVEF(%)79.1 (>50%) Aortic Valve AoV Peak Cachorro.141.0cm/sAoV VTI26.3cm AO Peak GR.7.9mmHgLVOT Peak Cachorro.120.1cm/s LVOT VTI 23.58cmAO Mean GR.4mmHg TRE (VMAX)2.63rx2NEI (VTI)2.82cm2 Mitral Valve MV E Xpicelde30.9cm/sMV DECEL [id number] MV A Fixecbvw01.7cm/sMV WIN96ee E/A Ratio0.9MVA (PHT)3.39cm2 TDI E/Lateral E'5.3E/Medial E'7.3 Pulmonary Valve PV Peak Bdzswpxa878.8cm/sPV Peak Grad.8mmHg Tricuspid Valve TR P. Plktjhug386el/sRAP DITWIWZK1bcFh TR Peak Gr.21mmHg Pulmonary Vein S1 Gsmcsuxf56.1cm/sD2 Xoeqebny24.0cm/s PVa [id number] LEFT VENTRICLE The left ventricle is normal size. There is normal left ventricular wall thickness. The left ventricu lar systolic function is normal. The Ejection Fraction is 55-60%. There is normal LV segmental wall m otion. Transmitral Doppler flow pattern is Grade I-abnormal relaxation pattern. RIGHT VENTRICLE The right ventricle is normal size. There is normal right ventricular wall thickness. The right ventr icular systolic function is normal. ATRIA The left atrium size is normal. The right atrium size is normal. The interatrial septum is intact wit h no evidence for an atrial septal defect or patent foramen ovale as noted on 2-D or Doppler imaging. AORTIC VALVE The aortic valve is normal in structure and function. Doppler and Color Flow revealed trace aortic re gurgitation. There is no significant aortic valvular stenosis. MITRAL VALVE The mitral valve is normal in structure and function. There is no evidence of mitral valve prolapse. There is no mitral valve stenosis. Doppler and Color-flow revealed trace mitral regurgitation. TRICUSPID VALVE The tricuspid valve is normal in structure and function. Doppler and Color Flow revealed no tricuspid valve regurgitation noted. There is no tricuspid valve stenosis. PULMONIC VALVE The pulmonic valve is not well visualized. Doppler and Color Flow revealed no pulmonic valvular regur gitation. GREAT VESSELS The aortic root is normal in size. The IVC is dilated and collapses <50% with inspiration. PERICARDIAL EFFUSION There is no evidence of significant pericardial effusion. Critical Notification Critical Value: No <Conclusion> The left ventricular systolic function is normal. The Ejection Fraction is 55-60%. There is normal LV segmental wall motion. Transmitral Doppler flow pattern is Grade I-abnormal relaxation pattern. Doppler and Color-flow revealed trace mitral regurgitation. There is no evidence of significant pericardial effusion. Signed by : Mickey Christina, Electronically Approved : 05/11/2019 09:34:29
== END 2019-05-11 15:06 | disposition home or self-care (01) | DRG 310 ==
LOC: ER 06:37 → 2 SOUTH 09:29
PROVIDERS: ADMIT Family Medicine; ATTEND Family Medicine
DX: I48.91 Unspecified atrial fibrillation (principal); I10 Essential (primary) hypertension; E11.9 Type 2 diabetes mellitus without complications; E78.5 Hyperlipidemia, unspecified; M85.80 Other specified disorders of bone density and structure, unspecified site; Z88.2 Allergy status to sulfonamides; Z98.51 Tubal ligation status; Z79.899 Other long term (current) drug therapy; Z87.891 Personal history of nicotine dependence
CPT/HCPCS: 36415; 71045; 80048; 80053; 80061; 83735; 83880; 84443; 84484; 85025; 93005; 93306; 96374; J3490; J7030; 99285-25; G0378

== ENCOUNTER 2019-11-11 23:47 | Emergency (ER) | payer BC ==
[~2019-11-11] VITALS: Ht 157.5 cm; Wt 84.0 kg
[~2019-11-11 23:47] MED LIST changes: +APIX5TAB PO; +ASPI81TA50 PO; +CALC-450 PO; +DILT180C29 PO; +LOSA100T14 PO
[2019-11-12 01:04] LABS: BASO % 1 % (0-3); EOS # 0.1 x10^3/uL (0.0-0.7); EOS % 3 % (0-3); HEMATOCRIT 42.3 % (36.0-47.0); HEMOGLOBIN 13.5 g/dL (12.0-15.5); LYMPH # 1.9 x10^3/uL (1.0-4.8); LYMPH % 37 % (24-48); MEAN CORPUSCULAR HEMOGLOBIN 23 pg (25-35); MEAN CORPUSCULAR HGB CONC 32 g/dL (31-37); MEAN CORPUSCULAR VOLUME 72 fL (79-100); MONO # 0.6 x10^3/uL (0.0-1.1); MONO % 11 % (0-9); NEUT # 2.5 x10^3/uL (1.8-7.7); NEUT % 49 % (31-73); PLATELET COUNT 284 x10^3/uL (140-400); RED BLOOD COUNT 5.86 x10^6/uL (3.50-5.40); RED CELL DISTRIBUTION WIDTH 13.6 % (11.5-14.5); WHITE BLOOD COUNT 5.2 x10^3/uL (4.0-11.0)
--- NOTE | 2019-11-12 01:09 | PHYS DOC ---
Past Medical History Past Medical History: A-Fib, Diabetes-Type II, Heart Disease, Hypertension Smoking Status: Former Smoker Alcohol Use: Rarely Drug Use: None Adult General Chief Complaint Chief Complaint: RAPID HEART RATE HPI HPI Patient is a 64 year old female with history of hypertension, atrial fibrillation on Xarelto, borderline diabetes mellitus who presents with complaining of heart racing. Patient states she woke up at 2200 with feeling hot, shortness of breath, heart racing and dizziness that was the same as episode of atrial fibrillation with RVR. Patient states she cleaned her home with Lysol and may be it was side effect of Lysol. Patient had heart rate of 80s in triage while she was still feeling palpitation. Patient denies chest pain, fever and chills, URI symptoms, history of anxiety or panic attack. Review of Systems Review of Systems Constitutional: Denies fever or chills [] Eyes: Denies change in visual acuity, redness, or eye pain [] HENT: Denies nasal congestion or sore throat [] Respiratory: Denies cough or shortness of breath [] Cardiovascular: No additional information not addressed in HPI [] GI: Denies abdominal pain, nausea, vomiting, bloody stools or diarrhea [] : Denies dysuria or hematuria [] Musculoskeletal: Denies back pain or joint pain [] Integument: Denies rash or skin lesions [] Neurologic: Denies headache, focal weakness or sensory changes [] Endocrine: Denies polyuria or polydipsia [] All other systems were reviewed and found to be within normal limits, except as documented in this note. Current Medications Current Medications Current Medications Medications (Trade) Dose Ordered Sig/Surendra Start Time Stop Time Status Last Admin Dose Admin Lorazepam (Ativan Inj) 0.5 mg 1X ONCE 11/12/19 01:15 11/12/19 01:16 DC 11/12/19 01:15 0.5 MG Allergies Allergies Allergies Coded Allergies Type Severity Reaction Last Updated Verified Sulfa (Sulfonamide Antibiotics) Allergy Intermediate Hives 12/09/14 Yes Physical Exam Physical Exam Constitutional: Well developed, well nourished, mild distress, non-toxic appe arance. [] HENT: Normocephalic, atraumatic. Eyes: PERRLA, EOMI, conjunctiva normal, no discharge. [] Neck: Normal range of motion, no tenderness, supple, no stridor. [] Cardiovascular:Heart rate regular rhythm, no murmur [] Lungs & Thorax: Bilateral breath sounds clear to auscultation [] Abdomen: Bowel sounds normal, soft, no tenderness, no masses, no pulsatile masses. [] Skin: Warm, dry, no erythema, no rash. [] Back: No tenderness, no CVA tenderness. [] Extremities: No tenderness, no cyanosis, no clubbing, ROM intact, no edema. [] Neurologic: Alert and oriented X 3, no focal deficits noted. [] Psychologic: Affect anxious, judgement normal, mood normal. [] Current Patient Data Vital Signs Vital Signs Date Time Temp Pulse Resp B/P (MAP) Pulse Ox O2 Delivery O2 Flow Rate FiO2 11/12/19 01:00 80 20 98 11/12/19 00:08 97.5 179/95 (123) Room Air 97.5 Lab Values Laboratory Tests Test 11/12/19 00:45 White Blood Count 5.2 x10^3/uL (4.0-11.0) Red Blood Count 5.86 x10^6/uL (3.50-5.40) H Hemoglobin 13.5 g/dL (12.0-15.5) Hematocrit 42.3 % (36.0-47.0) Mean Corpuscular Volume 72 fL (79-100) L Mean Corpuscular Hemoglobin 23 pg (25-35) L Mean Corpuscular Hemoglobin Concent 32 g/dL (31-37) Red Cell Distribution Width 13.6 % (11.5-14.5) Platelet Count 284 x10^3/uL (140-400) Neutrophils (%) (Auto) 49 % (31-73) Lymphocytes (%) (Auto) 37 % (24-48) Monocytes (%) (Auto) 11 % (0-9) H Eosinophils (%) (Auto) 3 % (0-3) Basophils (%) (Auto) 1 % (0-3) Neutrophils # (Auto) 2.5 x10^3/uL (1.8-7.7) Lymphocytes # (Auto) 1.9 x10^3/uL (1.0-4.8) Monocytes # (Auto) 0.6 x10^3/uL (0.0-1.1) Eosinophils # (Auto) 0.1 x10^3/uL (0.0-0.7) Basophils # (Auto) 0.0 x10^3/uL (0.0-0.2) Prothrombin Time 13.0 SEC (11.7-14.0) Prothrombin Time INR 1.0 (0.8-1.1) Sodium Level 141 mmol/L (136-145) Potassium Level 3.7 mmol/L (3.5-5.1) Chloride Level 105 mmol/L (98-107) Carbon Dioxide Level 27 mmol/L (21-32) Anion Gap 9 (6-14) Blood Urea Nitrogen 14 mg/dL (7-20) Creatinine 1.0 mg/dL (0.6-1.0) Estimated GFR (Cockcroft-Gault) 67.5 BUN/Creatinine Ratio 14 (6-20) Glucose Level 144 mg/dL (70-99) H Calcium Level 9.0 mg/dL (8.5-10.1) Magnesium Level 1.9 mg/dL (1.8-2.4) Total Bilirubin 0.4 mg/dL (0.2-1.0) Aspartate Amino Transferase (AST) 16 U/L (15-37) Alanine Aminotransferase (ALT) 18 U/L (14-59) Alkaline Phosphatase 94 U/L (46-116) Creatine Kinase 97 U/L (26-192) Troponin I Quantitative < 0.017 ng/mL (0.000-0.055) BG-Xrj-D-Type Natriuretic Peptide 10 pg/mL (0-124) Total Protein 7.8 g/dL (6.4-8.2) Albumin 3.8 g/dL (3.4-5.0) Albumin/Globulin Ratio 1.0 (1.0-1.7) Laboratory Tests 11/12/19 00:45 Laboratory Tests 11/12/19 00:45 EKG EKG EKG interpreted by me. EKG at 2355 showed normal sinus rhythm at rate of 78, normal NH and QT intervals, no acute ST and T wave elevation. Radiology/Procedures Radiology/Procedures [] Course & Med Decision Making Course & Med Decision Making Pertinent Labs and Imaging studies reviewed. (See chart for details) [] Dragon Disclaimer Dragon Disclaimer This electronic medical record was generated, in whole or in part, using a voice recognition dictation system. Departure Departure Impression: Primary Impression: Panic attack Additional Impression: Anxiety about health Disposition: HOME, SELF-CARE (At 0200) Condition: IMPROVED Referrals: GALLO POLLARD MD (PCP) Patient Instructions: Anxiety and Panic Attacks Additional Instructions: Continue current medication Follow-up with your primary care physician in 3-5 days Return to ER if not getting better Thank you for visiting [facility]. We appreciate you trusting us with your care. If any additional problems come up don't hesitate to return to visit us. Please follow up with your primary care provider so they can plan additional care if needed and know about the problem that you had. If symptoms worsen come back to the Emergency Department. Any concerning symptoms that start such as chest pain, shortness of air, weakness or numbness on one side of the body, running high fevers or any other concerning symptoms return to the ER. Problem Qualifiers JOHN SPENCER MD Nov 12, 2019 01:09
[2019-11-12 01:13] LABS: GFR 67.5; POTASSIUM 3.7 mmol/L (3.5-5.1)
[2019-11-12 01:23] LABS: ALBUMIN 3.8 g/dL (3.4-5.0); MAGNESIUM 1.9 mg/dL (1.8-2.4); TOTAL PROTEIN 7.8 g/dL (6.4-8.2)
[2019-11-12 01:38] LABS: TOTAL BILIRUBIN 0.4 mg/dL (0.2-1.0)
[2019-11-12 02:13] VITALS: BP 124/60
--- NOTE | 2019-11-12 02:32 | RAD ---
INDICATION: Palpitations COMPARISON: April 2019 FINDINGS: Single view of chest obtained. Cardiac silhouette is unremarkable. Degenerative changes the spine. Calcified granuloma left lung. No definite focal airspace consolidation. IMPRESSION: * No focal airspace consolidation or edema. Electronically signed by: Ernie Kiran MD (11/12/2019 2:29 AM) [id number]
--- NOTE | 2019-11-12 05:15 | EKG ---
[facility] [address] [place] [address] Test Date: 2019-11-11 Test Time: 23:55:06 Pat Name: NAY MENSAH Department: Room: Gender: F Scroll Assembler: : 1955 Requested By: JOHN SPENCER Order Number: [id number] Reading MD: Measurements Intervals [place] Rate: 77 P: 70 MD: 156 QRS: 12 QRSD: 90 T: 31 QT: 382 QTc: 439 Interpretive Statements SINUS RHYTHM NORMAL ECG No previous ECG available for comparison
== END 2019-11-12 02:16 | disposition home or self-care (01) ==
LOC: ER 23:47
DX: F41.0 Panic disorder [episodic paroxysmal anxiety] (principal); I11.9 Hypertensive heart disease without heart failure; E11.9 Type 2 diabetes mellitus without complications; I48.91 Unspecified atrial fibrillation; Z87.891 Personal history of nicotine dependence; Z88.2 Allergy status to sulfonamides
CPT/HCPCS: 36415; 71045; 80053; 82550; 83735; 83880; 84484; 85025; 85610; 93005; 96374; 99285; J2060

== ENCOUNTER → 2020-02-11 | Outpatient (CLI) | payer BC ==
[~2020-02-11] MED LIST changes: +OLME40TA12 PO
== END | disposition home or self-care (01) ==
LOC: LAB 13:27
PROVIDERS: ATTEND Internal Medicine Gastroenterology
DX: Z11.59 Encounter for screening for other viral diseases (principal)
CPT/HCPCS: U0003-CS

== ENCOUNTER → 2020-02-15 | Day surgery (SDC) | payer BC ==
[~2020-02-15] MED LIST changes: +IV RINGERS,LACTATED 1000ML 1,000 ML IV SCH; +LIDOCAINE 2% PF 5 ML VIAL. ONE; +PROPOFOL 10 MG/ML (20ML) VIAL. IV ONE; +ePHEDrine PF IN SALINE 50 MG/10 ML SYRINGE. IV ONE
--- NOTE | 2020-02-15 09:57 | OP ---
DATE OF SURGERY: PROCEDURE: Upper endoscopy and colonoscopy. I am dictating this as the [employer] system is down due to Wi-Fi being down in the entire building. HISTORY OF PRESENT ILLNESS: This is a 64-year-old female with a history of colon polyps as well as Thomas's esophagus, who presents today for upper and lower endoscopy. Full H and P has been dictated. The risks and benefits of the upper endoscopy and colonoscopy have been explained to her and she has agreed to proceed. DESCRIPTION OF PROCEDURE: UPPER ENDOSCOPY REPORT: The upper endoscope was introduced from the mouth and passed through The upper, middle, and lower esophagus under propofol anesthesia. Esophagitis was noted at 35 cm from the incisors. The scope was then passed into the fundus, body and antrum of the stomach. Retroflexion was performed. There was no hiatal hernia. Upon evaluation of the antrum, there was hematin present as well as gastritis. The scope was then passed through the pylorus into the duodenal bulb and first and second portion of the duodenum. This appeared without mucosal abnormality. Cold biopsy forceps were taken for histology. The scope was then withdrawn into the stomach and cold biopsy forceps were taken at the site of the gastritis. The scope was withdrawn to the distal esophagus and cold biopsy forceps were taken x 8 to follow up on Thomas's. The scope was completely withdrawn. The patient suffered no complications. FINDINGS: 1. Esophagitis at 35 cm, biopsy x 8. 2. Gastritis with hematin in the antrum and body, status post biopsy. 3. Normal bulb and second portion of the duodenum, status post biopsy. COLONOSCOPY: The pediatric colonoscope was introduced from the rectum under propofol anesthesia. It was passed through the rectum, sigmoid colon, descending colon, splenic flexure, transverse colon, hepatic flexure, ascending colon and the cecum was identified by the presence of the ileocecal valve and appendiceal orifice. A 360-degree viewing was performed upon withdrawal. The cecum was reached at 9:30. Upon withdrawal, 2 rectal polyps were removed in the rectum with cold biopsy forceps. Retroflexion was performed. Internal hemorrhoids were noted. The scope was completely withdrawn at 9:36. The cecal withdrawal time was 6 minutes. The patient suffered no complications. FINDINGS: 1. Rectal polyp measuring 3-5 mm, status post removal with cold biopsy forceps. 2. Internal hemorrhoids. PLAN: We will await results of both the upper and lower endoscopy. Most likely, she will need followup colonoscopy in 5 years given that she has had polyps. Pending the results of the upper endoscopy, we may need to perform another upper endoscopy if Thomas's esophagus was again identified. Thank you for allowing me to participate in the care of this patient. KAMLA WRAY MD DR: COLETTE/ellyn JOB#: [id number] / [id number] GALLO Reynaga MD
[2020-02-15 09:58] VITALS: BP 118/69
--- NOTE | 2020-02-15 10:39 | PREOP HP ---
DATE OF SERVICE: 02/15/2020 DATE OF PROCEDURE: 02/15/2020. REQUESTING PHYSICIAN: Angi Hudson MD PRIMARY CARE PHYSICIAN: Angi Hudson MD REASON FOR PROCEDURE: Thomas's and history of polyps. HISTORY OF PRESENT ILLNESS: This is a 64-year-old female who presents for followup of Thomas's esophagus. Her last EGD was on 12/09/[address] Tena. She previously had a colonoscopy in 2015 that revealed colon polyps. ALLERGIES: SULFA. PAST MEDICAL HISTORY: 1. Colon polyps. 2. Thomas's. 3. Reflux. 4. Anxiety. FAMILY MEDICAL HISTORY: No colorectal cancer. SOCIAL HISTORY: She does admit to drinking alcohol and is a former smoker. MEDICATIONS: 1. Diltiazem XR. 2. Olmesartan. PAST SURGICAL HISTORY: Breast surgery. REVIEW OF SYSTEMS: A 13-point review of systems was done. It is positive as per HPI and otherwise negative. PHYSICAL EXAMINATION: VITAL SIGNS: She is afebrile and her vital signs are stable. GENERAL: She is a well-developed, well-nourished -[place] female, in no apparent distress. HEENT: Oropharynx is clear. CARDIOVASCULAR: S1, S2. LUNGS: Clear. ABDOMEN: Normoactive bowel sounds. Soft, nontender, nondistended. EXTREMITIES: No edema. NEUROLOGIC: Awake, alert and oriented x 3. ASSESSMENT AND PLAN: 1. Thomas's esophagus. The risks and benefits of the upper endoscopy including bleeding, perforation, non-diagnosis and sedation were explained and she has agreed to proceed. 2. History of polyps. The risks and benefits of colonoscopy including bleeding, perforation, non-diagnosis and sedation risks were explained and she has agreed to proceed. KAMLA WRAY MD DR: COLETTE/ellyn JOB#: [id number] / [id number]
--- NOTE | 2020-02-16 17:06 | PATHOLOGY ---
[facility] Accession Number: [id number] . 01 Material submitted: . PART A: small bowel - SMALL BOWEL BIOPSY PART B: stomach - GASTRIC ANTRUM AND BODY BIOPSY. Modifiers: body PART C: esophagus - DISTAL ESOPHAGUS BIOPSY. Modifiers: distal PART D: rectum - RECTAL POLYPS BIOPSY . 01 Clinical history: . History Thomas's esophagus, CRS history polyps . 02 Diagnosis: A. Small bowel biopsies: - No significant pathologic abnormalities. . B. Gastric biopsies, gastric body and gastric antrum: - Chronic gastritis, mild. . C. Esophageal biopsies, distal esophagus: - Reflux esophagitis. . D. Colorectal biopsies, rectal polyps: - Hyperplastic polyps. (JPM:soni; 02/16/2020) [place] 02/16/2020 0913 Local . 02 Comment: Sections of the small bowel biopsy reveal segments of duodenal and small intestine mucosa. Where best oriented, the mucosal villi show no sprue-like changes or significant inflammatory changes. . Sections of the gastric biopsy reveal segments of gastric body and gastric antral/body transition mucosa. The gastric body mucosa shows congestion and mild superficial chronic inflammation. The gastric antral/body transition mucosa shows congestion and mild chronic inflammation. A properly controlled immunoperoxidase stain for Helicobacter is negative for Helicobacter organisms. . Sections of the distal esophageal biopsy reveal multiple segments of hyperplastic squamous esophageal mucosa with focal contiguous and separate segments of columnar lined mucosa of gastric type showing chronic inflammation. There is a single gland which contains a few goblet cells. There is no extensive intestinal metaplasia with goblet cells diagnostic Thomas's change. There is no dysplasia or evidence of malignancy. . Sections of the rectal biopsy reveal several hyperplastic polyps. There are no adenomatous changes or evidence of malignancy. (JPM:soni 02/16/2020) . Special stain performed: Immunoperoxidase stain for Helicobacter on B1 . 02 Electronically signed: . Shiv Waggoner MD, Pathologist NPI- [id number] . 01 Gross description: . A. The specimen is received in formalin, labeled "Brian, Veronica, small bowel BX" and consists of 4 fragments of pink-gutierrez tissue measuring 1.2 x 0.4 x 0.3 cm in aggregate which are entirely submitted in A1. . B. The specimen is received in formalin, labeled "Brian, Veronica, gastric antrum and body BX" and consists of 4 fragments of gutierrez tissue measuring 1.3 x 0.4 x 0.2 cm in aggregate which are entirely submitted in B1. . C. The specimen is received in formalin, labeled "Brian, Veronica, distal esophagus BX" and consists of multiple fragments of gutierrez tissue measuring 1.3 x 0.9 x 0.3 cm in aggregate which are entirely submitted in C1. . D. The specimen is received in formalin, labeled "Brian, Veronica, rectal polyps BX" and consists of 3 fragments of pink-gutierrez tissue measuring between 0.3 x 0.2 cm and 0.4 x 0.2 cm which are entirely submitted in D1. (SDY; 02/15/2020) SYU/SYU 02/15/2020 1624 Local . 02 Pathologist provided ICD-10: K29.50, K21.0, K62.1 . 02 CPT . 017795, [id number], 534647, [id number], [id number] Specimen Comment: A courtesy copy of this report has been sent to [phone], [phone] Specimen Comment: [id number] Specimen Comment: Report sent to / DR POLLARD Performed at: 01 [facility] [address], [place] [id number] MD Kieran Davies MD Phone: [phone] Performed at: 02 [facility] [address] [place], [place] [id number] MD Shiv Waggoner MD Phone: [phone]
== END ==
LOC: SURG 08:11
PROVIDERS: ATTEND Internal Medicine Gastroenterology
DX: Z12.11 Encounter for screening for malignant neoplasm of colon (principal); K62.1 Rectal polyp; K29.50 Unspecified chronic gastritis without bleeding; K21.0 Gastro-esophageal reflux disease with esophagitis; K64.8 Other hemorrhoids; F41.9 Anxiety disorder, unspecified; I10 Essential (primary) hypertension; F15.90 Other stimulant use, unspecified, uncomplicated; F32.9 Major depressive disorder, single episode, unspecified; Z88.1 Allergy status to other antibiotic agents; Z86.010 Personal history of colon polyps; Z72.89 Other problems related to lifestyle; Z87.891 Personal history of nicotine dependence
CPT/HCPCS: 43239; 45380; 88305; 88342; J2704